=== PATIENT | female | born 1985 | race Caucasian/White ===

== ENCOUNTER 2019-02-22 15:31 | Inpatient (IN) | payer OTHER ==
[2019-02-22] MEDS ORDERED: MISOPROSTOL 200 MCG TAB PR ×2 (16:00→21:00)
[2019-02-22] MEDS ORDERED: METHYLERGONOVINE 0.2 MG INJ IM (16:00)
[2019-02-22] MEDS ORDERED: OXYTOCIN 30 UNITS/LR 500 ML IV ×2 (16:00→20:48)
[2019-02-22] MEDS ORDERED: CARBOPROST 250 MCG INJ IM (16:00)
[2019-02-22] MEDS: LACTATED RINGER'S 1,000 ML IV ×3 (16:21→20:50)
[2019-02-22 16:27] LABS: ADD MAN DIFF? NO
[2019-02-22 16:30] LABS: WHITE BLOOD COUNT 11.3 10^3/ul (4.8-10.8)
[2019-02-22 16:30] LABS: BASOPHILS % 0.4 % (0.0-2.0); EOSINOPHILS # 0.1 10^3/ul (0.0-0.5); EOSINOPHILS % 1.1 % (0.0-7.0); HEMATOCRIT 41.2 % (37.0-47.0); HEMOGLOBIN 13.9 g/dl (12.0-16.0); LYMPHOCYTES # 2.6 10^3/ul (0.8-2.9); LYMPHOCYTES % 22.6 % (15.0-51.0); MEAN CORPUSCULAR HEMOGLOBIN 30.5 pg (29.0-33.0); MEAN CORPUSCULAR HGB CONC 33.7 g/dl (32.0-37.0); MEAN CORPUSCULAR VOLUME 90.4 fl (82.0-101.0); MEAN PLATELET VOLUME 10.2 fl (7.4-10.4); MONOCYTE # 1.1 10^3/ul (0.3-0.9); MONOCYTES % 9.5 % (0.0-11.0); NEUTROPHIL # 7.4 10^3/ul (1.6-7.5); NEUTROPHILS % 65.4 % (39.0-77.0); PLATELET COUNT 287 10^3/UL (140-415); RED BLOOD COUNT 4.56 10^6/ul (4.20-5.40); RED CELL DISTRIBUTION WIDTH 13.9 % (11.5-14.5)
[2019-02-22 17:05] LABS: INR 0.96; PROTIME 12.9 Sec (11.9-14.9)
[2019-02-22 17:06] LABS: PARTIAL THROMBOPLASTIN TIME 26.2 Sec (23.0-35.0)
[2019-02-22 17:07] LABS: GLUCOSE 72 mg/dl (70-220)
[2019-02-22] MEDS ORDERED: CITRIC ACID/NA CITRATE 30 ML CUP (17:44)
[2019-02-22] MEDS: CITRIC ACID/NA CITRATE 30 ML CUP PO (17:58)
[2019-02-22 18:54] LABS: ALANINE AMINOTRANSFERASE 18 IU/L (13-69); ALBUMIN 3.3 g/dl (3.3-4.9); ALBUMIN/GLOBULIN RATIO 1.13; ALKALINE PHOSPHATASE 148 IU/L (42-121); ANION GAP 11 (5-13); ASPARTATE AMINO TRANSFERASE 27 IU/L (15-46); BILIRUBIN,INDIRECT 0.2 mg/dl (0-1.1); BILIRUBIN,TOTAL 0.2 mg/dl (0.2-1.3); BLOOD UREA NITROGEN 13 mg/dl (7-20); CARBON DIOXIDE 20 mmol/L (21-31); CHLORIDE 107 mmol/L (97-110); CREATININE 0.52 mg/dl (0.44-1.00); Estimated GFR > 60 mL/min (>60); GLUCOSE 71 mg/dl (70-220); SODIUM 138 mmol/L (135-144); TOTAL PROTEIN 6.2 g/dl (6.1-8.1); URIC ACID 4.1 mg/dl (3.1-7.9)
[2019-02-22] MEDS ORDERED: KETOROLAC 30 MG INJ ×2 (19:36→21:36)
[2019-02-22] MEDS ORDERED: morphine SULFATE/PF (10 MG/10 ML) INJ (19:36)
[2019-02-22] MEDS ORDERED: ONDANSETRON 4 MG INJ (19:36)
[2019-02-22] MEDS ORDERED: METOCLOPRAMIDE 10 MG INJ (19:36)
[2019-02-22 19:51] LABS: ADD UMIC YES; UR ASCORBIC ACID NEGATIVE (NEGATIVE); UR BACTERIA FEW /HPF (NONE SEEN); UR BILIRUBIN (Dip) NEGATIVE (NEGATIVE); UR BLOOD (Dip) 1+ mg/dL (NEGATIVE); UR CLARITY SLIGHTLY CLOUDY (CLEAR); UR COLOR YELLOW (YELLOW); UR GLUCOSE (Dip) NEGATIVE (NEGATIVE); UR KETONES (Dip) 1+ mg/dL (NEGATIVE); UR LEUKOCYTE ESTERASE (Dip) NEGATIVE Leu/ul (NEGATIVE); UR NITRITE (Dip) NEGATIVE (NEGATIVE); UR RBC 2 /HPF (0-5); UR SQUAMOUS EPITHELIAL CELL MODERATE /HPF (FEW); UR TOTAL PROTEIN (Dip) NEGATIVE (NEGATIVE); UR UROBILINOGEN (Dip) NEGATIVE (NEGATIVE); UR WBC 1 /HPF (0-5)
[2019-02-22 20:06] LABS: HEPATITIS B SURFACE ANTIGEN NEGATIVE (NEGATIVE)
[2019-02-22] MEDS ORDERED: FENTAnyl 50 MCG/ML VIAL (20:26)
[2019-02-22] MEDS ORDERED: LANOLIN HPA 1 PKT TOP (21:00)
[2019-02-22] MEDS: SENNA/DOCUSATE NA (8.6MG/50MG) TAB PO (21:00)
[2019-02-22] MEDS ORDERED: NA PHOSPHATE/BIPHOS 133 ML ENEMA PR (21:00)
[2019-02-22] MEDS: CEFAZOLIN 2 GM/50 ML (PMX) 50 ML IVPB (21:32)
[2019-02-22] MEDS: KETOROLAC 30 MG INJ IV (21:43)
[2019-02-22] MEDS ORDERED: DIPHENHYDRAMINE 50 MG INJ IV ×2 (22:00)
[2019-02-22] MEDS ORDERED: morphine 2 MG INJ IV ×3 (22:00)
[2019-02-22] MEDS ORDERED: morphine (1 MG/ML) 10ML SYRINGE IV ×3 (22:00)
[2019-02-22] MEDS ORDERED: NALOXONE (0.4 MG/ML) INJ IV (22:00)
[2019-02-22] MEDS ORDERED: KETOROLAC 30 MG INJ IV (22:00)
[2019-02-22] MEDS ORDERED: ONDANSETRON 4 MG INJ IV ×2 (22:00)
[2019-02-23] MEDS: LACTATED RINGER'S 1,000 ML IV ×3 (00:59→16:06)
[2019-02-23] MEDS: KETOROLAC 30 MG INJ IV ×2 (06:43→16:02)
[2019-02-23] MEDS: SENNA/DOCUSATE NA (8.6MG/50MG) TAB PO ×2 (08:52→21:46)
[2019-02-23 08:59] LABS: ADD MAN DIFF? NO
[2019-02-23 09:04] LABS: BASOPHIL # 0.1 10^3/ul (0.0-0.1); BASOPHILS % 0.3 % (0.0-2.0); EOSINOPHILS # 0.1 10^3/ul (0.0-0.5); EOSINOPHILS % 0.5 % (0.0-7.0); HEMATOCRIT 37.3 % (37.0-47.0); HEMOGLOBIN 12.4 g/dl (12.0-16.0); LYMPHOCYTES # 1.2 10^3/ul (0.8-2.9); MEAN CORPUSCULAR HEMOGLOBIN 30.5 pg (29.0-33.0); MEAN CORPUSCULAR HGB CONC 33.2 g/dl (32.0-37.0); MEAN CORPUSCULAR VOLUME 91.6 fl (82.0-101.0); MEAN PLATELET VOLUME 10.5 fl (7.4-10.4); MONOCYTE # 0.9 10^3/ul (0.3-0.9); MONOCYTES % 6.3 % (0.0-11.0); NEUTROPHIL # 12.6 10^3/ul (1.6-7.5); NEUTROPHILS % 84.3 % (39.0-77.0); PLATELET COUNT 248 10^3/UL (140-415); RED BLOOD COUNT 4.07 10^6/ul (4.20-5.40); RED CELL DISTRIBUTION WIDTH 13.7 % (11.5-14.5)
[2019-02-23 16:14] LABS: RAPID PLASMA REAGIN NONREACTIVE (NR)
[2019-02-23] MEDS: IBUPROFEN 600 MG TAB PO (23:33)
[2019-02-24] MEDS: LACTATED RINGER'S 1,000 ML IV ×3 (05:58→23:48)
[2019-02-24] MEDS: IBUPROFEN 600 MG TAB PO ×3 (05:58→17:46)
[2019-02-24] MEDS: SENNA/DOCUSATE NA (8.6MG/50MG) TAB PO ×2 (11:54→21:18)
[2019-02-24] MEDS: OXYCODONE/ACETAMINOPHEN (5/325) TAB PO ×2 (15:30→21:19)
[2019-02-25] MEDS: IBUPROFEN 600 MG TAB PO ×3 (00:26→11:38)
[2019-02-25] MEDS: MEASLES,MUMPS,RUBELLA VACCINE INJ SC* (07:42)
[2019-02-25] MEDS: SENNA/DOCUSATE NA (8.6MG/50MG) TAB PO (08:31)
[2019-02-25] MEDS: DIPHTH/TET/ACEL PERTUSS (ADULT) 0.5 ML VIAL IM* (09:25)
== END 2019-02-25 15:28 | disposition home or self-care (01) | DRG 785 ==
LOC: L-D 15:31 → PP1 23:57
PROVIDERS: Specialist
PROC: 10D00Z1 Extraction of Products of Conception, Low, Open Approach (ICD-10-PCS; principal; 2019-02-22 18:00)
PROC: 0UB70ZZ Excision of Bilateral Fallopian Tubes, Open Approach (ICD-10-PCS; 2019-02-22 18:00)
PROC: 0UB00ZZ Excision of Right Ovary, Open Approach (ICD-10-PCS; 2019-02-22 18:00)
DX: O24.420 Gestational diabetes mellitus in childbirth, diet controlled (principal); O34.211 Maternal care for low transverse scar from previous cesarean delivery; O34.83 Maternal care for other abnormalities of pelvic organs, third trimester; N83.201 Unspecified ovarian cyst, right side; Z30.2 Encounter for sterilization; Z3A.39 39 weeks gestation of pregnancy; Z37.0 Single live birth
CPT/HCPCS: 80053; 81001; 82947; 82962; 84560; 85025; 85610; 85730; 86592; 86850; 86900; 86901; 87340; 88302; 88305; 90715; 99464